=== PATIENT | male | born 1975 | race Caucasian/White ===

== ENCOUNTER 2022-11-05 09:03 | Inpatient (IN) | payer OTHER ==
[~2022-11-05 09:03] MED LIST: REGADENOSON 0.4 MG/5 ML SYR IV ONE
--- OUTSIDE RECORDS SUMMARY | 2022-11-05 09:08 | XMS REPORT | Continuity of Care Document ---
:1975 Author Organization [facility] t Address [address] [facility] [address] [place] [address] Care Team Providers Name Role Phone Georgia Marcelino Attending Clinician Unavailable Problems This patient has no known problems. Allergies, Adverse Reactions, Alerts This patient has no known allergies or adverse reactions. Medications This patient has no known medications. Procedures This patient has no known procedures. Encounters Start End Encounter Admission Attending Care Care Encounter Source Date/Time Date/Time Type Type Clinicians Facility Department ID 2021-04-23 Outpatient IRIS Marcelino [facility] [id number] Common 10:59:53 Georgia [id number] [facility] 2022-11-02 2022-11-02 Outpatient [facility] [id number] Daryn 08:20:45 08:20:45 [id number] F Abundio 2022-10-29 2022-10-29 Outpatient [facility] [id number] Daryn 17:10:17 17:10:17 [id number] F Abundio Results This patient has no known results.
--- NOTE | 2022-11-05 09:33 | EDPHYS ---
Physician Documentation [facility] Name: Guy Owens Age: 47 yrs Sex: Male : 1975 Arrival Date: 11/05/2022 Time: 09:03 Bed 18 Private MD: ED Physician German Hyman HPI: 11/05 09:28 This 47 yrs old Male presents to ER via Ambulatory with complaints of Chest Pain, snw Numbness Of Arm - Left. 09:28 Onset: The symptoms/episode began/occurred acutely. Associated signs and symptoms: snw Pertinent positives: chest pain, shortness of breath, diaphoresis, anxiety. The patient has not experienced similar symptoms in the past. The patient has been recently seen by a physician: the patient's primary care provider, with similar presenting complaints, encouraged to see cardiology, get stress test. Historical: - Allergies: 09:10 No Known Allergies; bp - Home Meds: 09:10 None [Active]; bp - PMHx: 09:10 None; bp - Immunization history:: Adult Immunizations up to date. - Social history:: Smoking status: Patient denies any tobacco usage or history of. ROS: 09:27 Constitutional: Negative for fever, chills, and weight loss, Eyes: Negative for injury, snw pain, redness, and discharge, ENT: Negative for injury, pain, and discharge, Neck: Negative for injury, pain, and swelling. 09:27 : Negative for injury, bleeding, discharge, and swelling, MS/Extremity: Negative for injury and deformity, Skin: Negative for injury, rash, and discoloration, Neuro: Negative for headache, weakness, numbness, tingling, and seizure, Psych: Negative for depression, anxiety, suicide ideation, homicidal ideation, and hallucinations, + anxious 09:27 Cardiovascular: Positive for chest pain. 09:27 Respiratory: Positive for shortness of breath. 09:27 Abdomen/GI: Positive for sweaty, poor feeling not described as nausea. Exam: 09:26 Constitutional: This is a well developed, well nourished patient who is awake, alert, snw and in no acute distress. Head/Face: Normocephalic, atraumatic. Eyes: Pupils equal round and reactive to light, extra-ocular motions intact. Lids and lashes normal. Conjunctiva and sclera are non-icteric and not injected. Cornea within normal limits. Periorbital areas with no swelling, redness, or edema. ENT: Nares patent. No nasal discharge, no septal abnormalities noted. Tympanic membranes are normal and external auditory canals are clear. Oropharynx with no redness, swelling, or masses, exudates, or evidence of obstruction, uvula midline. Mucous membranes moist. Neck: Trachea midline, no thyromegaly or masses palpated, and no cervical lymphadenopathy. Supple, full range of motion without nuchal rigidity, or vertebral point tenderness. No Meningismus. Chest/axilla: Normal chest wall appearance and motion. Nontender with no deformity. No lesions are appreciated. 09:26 Respiratory: Lungs have equal breath sounds bilaterally, clear to auscultation and percussion. No rales, rhonchi or wheezes noted. No increased work of breathing, no retractions or nasal flaring. Abdomen/GI: Soft, non-tender, with normal bowel sounds. No distension or tympany. No guarding or rebound. No evidence of tenderness throughout. Back: No spinal tenderness. No costovertebral tenderness. Full range of motion. Skin: Warm, dry with normal turgor. Normal color with no rashes, no lesions, and no evidence of cellulitis. MS/ Extremity: Pulses equal, no cyanosis. Neurovascular intact. Full, normal range of motion. Neuro: Awake and alert, GCS 15, oriented to person, place, time, and situation. Cranial nerves II-XII grossly intact. Motor strength 5/5 in all extremities. Sensory grossly intact. Cerebellar exam normal. Normal gait. Psych: Awake, alert, with orientation to person, place and time. Behavior, mood, and affect are within normal limits. 09:26 Cardiovascular: Rate: tachycardic, Rhythm: regular, Pulses: no pulse deficits are appreciated, Edema: is not appreciated. Vital Signs: 09:09 BP 136 / 94; Pulse 82; Resp 16; Temp 98; Pulse Ox 100% ; Weight 77.11 kg; Height 6 ft. bp 1 in. ; 09:20 BP 182 / 95; Pulse 87; Resp 17; Temp 98.7; Pulse Ox 99% on R/A; rs5 10:00 BP 139 / 98; Pulse 67; Resp 18 S; Pulse Ox 99% on R/A; aa5 10:18 BP 137 / 91; Pulse 62; Resp 18 S; Pulse Ox 97% on R/A; aa5 11:00 BP 120 / 86; Pulse 65; Resp 16 S; Pulse Ox 97% on R/A; aa5 12:00 BP 118 / 90; Pulse 64; Resp 17 S; Pulse Ox 97% on R/A; aa5 13:00 BP 115 / 80; Pulse 74; Resp 16 S; Pulse Ox 96% on R/A; aa5 14:00 BP 118 / 80; Pulse 74; Resp 16 S; Pulse Ox 100% on R/A; aa5 16:00 BP 115 / 85; Pulse 73; Resp 16 S; Temp 98(TE); Pulse Ox 98% on R/A; aa5 09:09 Body Mass Index 22.43 (77.11 kg, 185.42 cm) bp 10:00 Provider notified of repeat VS, VO to hold 2nd and 3rd dose of Metoprolol. aa5 MDM: 09:17 Patient medically screened. snw 09:32 Differential diagnosis:. snw 09:33 Differential diagnosis: abnormal EKG, acute myocardial infarction, acute pericarditis, snw anxiety, coronary artery disease chest wall pain, stable angina, unstable angina. HEART Score: History: Highly Suspicious (2), ECG: Normal (0), Age: > 45 and < 65 years (1), Risk Factors: 1 or 2 risk factors (1), [Hypertension]. The patient was given aspirin in the Emergency Department. ROHIT Risk Score: 1 - Recent [<24hrs] Severe Angina, TOTAL SCORE = 1. Data reviewed: vital signs, nurses notes, lab test result(s), EKG, radiologic studies, plain films. Management of patient was discussed with the following: Hospitalist: Dr. Dowling. I considered the following discharge prescriptions or medication management in the emergency department Medications were administered in the Emergency Department. See MAR. Counseling: I had a detailed discussion with the patient and/or guardian regarding: the historical points, exam findings, and any diagnostic results supporting the discharge/admit diagnosis, the presence of at least one elevated blood pressure reading (>120/80) during this emergency department visit, lab results, radiology results, the need for further work-up and treatment in the hospital. 11/05 09:17 Order name: Basic Metabolic Panel; Complete Time: 10:09 snw 11/05 09:17 Order name: CBC with Diff; Complete Time: 09:45 snw 11/05 09:17 Order name: LFT's; Complete Time: 10:09 snw 11/05 09:17 Order name: Magnesium; Complete Time: 10:09 snw 11/05 09:17 Order name: NT PRO-BNP; Complete Time: 10:09 snw 11/05 09:17 Order name: PT-INR; Complete Time: 09:53 snw 11/05 09:17 Order name: Troponin HS; Complete Time: 10:09 snw 11/05 13:01 Order name: Lipid Profile EDMS 11/05 13:01 Order name: Lipid Profile EDMS 11/05 13:01 Order name: Troponin High Sensitivity EDMS 11/05 13:01 Order name: Troponin High Sensitivity EDMS 11/05 13:01 Order name: Troponin High Sensitivity EDMS 11/05 13:01 Order name: Troponin High Sensitivity; Complete Time: 17:53 EDMS 11/05 09:17 Order name: XRAY Chest (1 view); Complete Time: 10:48 snw 11/05 13:01 Order name: Echo with Doppler EDMS 11/05 13:01 Order name: Echo with Doppler EDMS 11/05 09:17 Order name: EKG; Complete Time: 09:18 snw 11/05 12:13 Order name: Diet Heart Healthy; Complete Time: 12:14 aa5 11/05 13:01 Order name: CONS Physician Consult EDMS 11/05 15:24 Order name: Diet Heart Healthy; Complete Time: 15:24 aa5 11/05 09:17 Order name: Cardiac monitoring; Complete Time: 09:20 snw 11/05 09:17 Order name: EKG - Nurse/Tech; Complete Time: 09:26 snw 11/05 09:17 Order name: IV Saline Lock; Complete Time: 09:34 snw 11/05 09:17 Order name: Labs collected and sent; Complete Time: 09:34 snw 11/05 09:17 Order name: O2 Per Protocol; Complete Time: 09:20 snw 11/05 09:17 Order name: O2 Sat Monitoring; Complete Time: 09:20 snw Administered Medications: 09:40 Drug: Metoprolol IVP 5 mg Route: IVP; Site: right forearm; rs5 09:45 Drug: Aspirin PO Chewable Tablet 324 mg Route: PO; rs5 10:21 Follow up: Response: No adverse reaction aa5 Disposition Summary: 11/05/22 09:32 Hospitalization Ordered Hospitalization Status: Inpatient Admission snw Provider: Kobi Dowling snw Condition: Stable snw Problem: new snw Symptoms: are unchanged snw Bed/Room Type: Standard snw Location: Telemetry/MedSurg (Inpatient)(11/05/22 20:16) cg Room Assignment: [facility](11/05/22 20:16) Diagnosis - Unstable angina snw Forms: - Medication Reconciliation Form snw - SBAR form snw Signatures: Dispatcher [employer] EDGayle Jacob FNP-C BASTING P[employer]ER-Csnw Jael Washburn RN RN aa5 Skylar Amin RN RN cg Will Hastings, RN RN Marcello Jefferson RN RN rs5 Corrections: (The following items were deleted from the chart) 17:35 09:32 Telemetry/MedSurg (Inpatient) snw aa5 17:35 09:32 snw aa5 20:16 17:35 BR ER HOLD aa5 cg 20:16 17:35 ERHOLD- aa5 cg
--- NOTE | 2022-11-05 09:33 | ER ---
Nurse's Notes [facility] Name: Guy Owens Age: 47 yrs Sex: Male : 1975 Arrival Date: 11/05/2022 Time: 09:03 Bed 18 Private MD: Diagnosis: Unstable angina Presentation: 11/05 09:09 Chief complaint: Patient states: LEFT CHEST PAIN AND LUE NUMBNESS x3 DAYS, bp INTERMITTENT, HEAVY. Coronavirus screen: At this time, the client does not indicate any symptoms associated with coronavirus-19. Ebola Screen: No symptoms or risks identified at this time. Initial Sepsis Screen: Does the patient meet any 2 criteria? No. Patient's initial sepsis screen is negative. Does the patient have a suspected source of infection? No. Patient's initial sepsis screen is negative. Risk Assessment: Do you want to hurt yourself or someone else? Patient reports no desire to harm self or others. Onset of symptoms is unknown. 09:09 Method Of Arrival: Ambulatory bp 09:09 Acuity: ASCENCION 3 bp Historical: - Allergies: 09:10 No Known Allergies; bp - Home Meds: 09:10 None [Active]; bp - PMHx: 09:10 None; bp - Immunization history:: Adult Immunizations up to date. - Social history:: Smoking status: Patient denies any tobacco usage or history of. Screenin:15 [facility] ED Fall Risk Assessment (Adult) History of falling in the last 3 months, aa5 including since admission No falls in past 3 months (0 pts) Confusion or Disorientation No (0 pts) Intoxicated or Sedated No (0 pts) Impaired Gait No (0 pts) Mobility Assist Device Used No (0 pt) Altered Elimination No (0 pt) Score/Fall Risk Level 0 - 2 = Low Risk Oriented to surroundings, Maintained a safe environment, Educated pt \T\ family on fall prevention, incl call for assistance when getting out of bed. Abuse screen: Denies threats or abuse. Nutritional screening: No deficits noted. Tuberculosis screening: No symptoms or risk factors identified. Assessment: 09:15 General: Appears comfortable, Behavior is calm, cooperative. Pain: Complains of pain in aa5 chest Pain radiates to left arm Pain currently is 0 out of 10 on a pain scale. Quality of pain is described as heavy, pressure, Pain began 2-3 days ago. Is intermittent. Neuro: Level of Consciousness is awake, alert, obeys commands, Oriented to person, place, time, situation. Cardiovascular: Heart tones S1 S2 present Rhythm is sinus rhythm Parent/caregiver reports patient has had numbness to left arm x 3 days ago. Respiratory: Airway is patent Respiratory effort is even, unlabored, Respiratory pattern is regular, symmetrical. GI: Abdomen is non-distended, Bowel sounds present X 4 quads. Abd is soft and non tender X 4 quads. Patient currently denies nausea, vomiting. : No signs and/or symptoms were reported regarding the genitourinary system. EENT: No signs and/or symptoms were reported regarding the EENT system. Derm: Skin is pink, warm \T\ dry. Musculoskeletal: Range of motion: intact in all extremities. 10:18 Reassessment: x-ray at bedside . aa5 12:10 Reassessment: Patient is alert, oriented x 3, equal unlabored respirations, skin aa5 warm/dry/pink. States no complaints at this time. Awaiting admission orders for room assignment, pt notified of wait time. . 12:33 Reassessment: Dr. Dowling (hospitalist) at bedside. . aa5 12:59 Reassessment: Given lunch tray. . aa5 13:42 Reassessment: Patient is alert, oriented x 3, equal unlabored respirations, skin aa5 warm/dry/pink. Pt ambulatory to restroom . 15:00 Reassessment: Patient is alert, oriented x 3, equal unlabored respirations, skin aa5 warm/dry/pink. Patient denies pain at this time. 16:21 Reassessment: Awaiting repeat troponin due at 1725. aa5 20:21 General: attempted to call report. nurse not available and will call back. lg3 Vital Signs: 09:09 BP 136 / 94; Pulse 82; Resp 16; Temp 98; Pulse Ox 100% ; Weight 77.11 kg; Height 6 ft. bp 1 in. ; 09:20 BP 182 / 95; Pulse 87; Resp 17; Temp 98.7; Pulse Ox 99% on R/A; rs5 10:00 BP 139 / 98; Pulse 67; Resp 18 S; Pulse Ox 99% on R/A; aa5 10:18 BP 137 / 91; Pulse 62; Resp 18 S; Pulse Ox 97% on R/A; aa5 11:00 BP 120 / 86; Pulse 65; Resp 16 S; Pulse Ox 97% on R/A; aa5 12:00 BP 118 / 90; Pulse 64; Resp 17 S; Pulse Ox 97% on R/A; aa5 13:00 BP 115 / 80; Pulse 74; Resp 16 S; Pulse Ox 96% on R/A; aa5 14:00 BP 118 / 80; Pulse 74; Resp 16 S; Pulse Ox 100% on R/A; aa5 16:00 BP 115 / 85; Pulse 73; Resp 16 S; Temp 98(TE); Pulse Ox 98% on R/A; aa5 09:09 Body Mass Index 22.43 (77.11 kg, 185.42 cm) bp 10:00 Provider notified of repeat VS, VO to hold 2nd and 3rd dose of Metoprolol. aa5 ED Course: 09:06 Patient arrived in ED. mg5 09:08 [facility] snw 09:08 German Hyman MD is Attending Physician. snw 09:10 Triage completed. bp 09:15 No provider procedures requiring assistance completed. Patient maintains SpO2 aa5 saturation greater than 95% on room air. 09:15 Patient has correct armband on for positive identification. Placed in gown. Bed in low aa5 position. Call light in reach. Side rails up X2. Adult w/ patient. Client placed on continuous cardiac and pulse oximetry monitoring. NIBP monitoring applied. 09:20 Jael Washburn RN is Primary Nurse. aa5 09:25 Initial lab(s) drawn, by or, sent to lab. Inserted saline lock: 20 gauge in right aa5 forearm, using aseptic technique. Blood collected. 09:32 Kobi Dowling MD is Hospitalizing Provider. snw 10:35 XRAY Chest (1 view) In Process Unspecified. EDMS 17:00 Patient admitted, IV remains in place. aa5 21:09 Primary Nurse role handed off by Jael Washburn, RN wm Administered Medications: 09:40 Drug: Metoprolol IVP 5 mg Route: IVP; Site: right forearm; rs5 09:45 Drug: Aspirin PO Chewable Tablet 324 mg Route: PO; rs5 10:21 Follow up: Response: No adverse reaction aa5 Medication: 17:00 VIS not applicable for this client. aa5 Outcome: 09:32 Decision to Hospitalize by Provider. snw 17:00 Admitted to ER Hold. Please see [facility] for further documentation. aa5 17:00 Condition: stable 17:00 Instructed on the need for admit, Demonstrated understanding of instructions. 21:21 Patient left the ED. mb9 Signatures: Dispatcher [employer] EDMS Gayle Hampton, SIDE SPLITTER-C SIDE SPLITTER-Csnw Jael Washburn, RN RN aa5 Will Hastings RN RN bp Yuridia Gilliam RN RN lg3 Estefani Duke Mary Beth RN RN mb9 Marcello Jefferson RN RN rs5 Jing Burk mg5 Corrections: (The following items were deleted from the chart) 09:50 09:45 Metoprolol IVP 5 mg IVP in right forearm rs5 rs5
[2022-11-05 09:43] LABS: Absolute Lymphocytes (CBC) 2.5 K/uL (0.7-4.9); Hematocrit 48.9 % (39.6-49.0); Lymphocytes % 41.4 % (15.3-44.8); MCV 89.2 fL (80-100); MPV 8.8 fL (7.6-11.3); Platelets 221 thou/uL (152-406); RBC Red Blood Cell Count 5.49 M/uL (4.33-5.43)
[2022-11-05] MEDS ORDERED: ASPIRIN 81 MG CHEWABLE TABLET ONE (09:48)
[2022-11-05] MEDS ORDERED: METOPROLOL TARTRATE 5 MG/5 ML INJ IV ONE (09:49)
[2022-11-05 09:50] LABS: Protime INR 0.9
[2022-11-05 10:05] LABS: ALT/SGPT 19 U/L (16-61); AST/SGOT 14 U/L (15-37); Albumin 4.3 g/dL (3.4-5.0); Alkaline Phosphatase 74 U/L (45-117); BUN Blood Urea Nitrogen 13 mg/dL (7-18); Bicarbonate 24 mEq/L (21-32); Bilirubin Direct 0.2 mg/dL (0-0.2); Bilirubin Indirect, Calculated 0.8 mg/dL (0.2-0.8); Glomerular Filtration Rate 78 ml/min (=/>90); Glucose Level 101 mg/dL (74-106); Magnesium 2.4 mg/dL (1.6-2.4); NT PRO-BNP 18 pg/mL (<125); Potassium 3.7 mEq/L (3.5-5.1); Protein, Total 8.2 g/dL (6.4-8.2); Sodium Level 136 mEq/L (136-145)
[2022-11-05 10:08] LABS: Troponin High Sensitivity < 3.0 pg/mL (<58.9)
--- NOTE | 2022-11-05 10:41 | RAD REPORT ---
EXAM DESCRIPTION: RAD - Chest Single View - 11/05/2022 10:33 am CLINICAL HISTORY: CHEST PAIN Chest pain. COMPARISON: No comparisons FINDINGS: Portable technique limits examination quality. The lungs are grossly clear. The heart is normal in size. No displaced fractures. IMPRESSION: No acute intrathoracic process suspected.
[2022-11-05] MEDS ORDERED: MORPHINE 4 MG/ML SYR IV PRN (12:56)
[2022-11-05] MEDS ORDERED: ACETAMINOPHEN 500 MG TAB PO PRN (12:56)
--- NOTE | 2022-11-05 13:01 | P.HP ---
Certification for Inpatient Patient admitted to: Observation With expected LOS: <2 Midnights Patient will require the following post-hospital care: None Practitioner: I am a practitioner with admitting privileges, knowledge of patient current condition, hospital course, and medical plan of care. Services: Services provided to patient in accordance with Admission requirements found in Title 42 Section 412.3 of the Code of Federal Regulations Patient History Date of Service: 11/05/22 Reason for admission: CP r/o ACS History of Present Illness: Patient is a 47yo who was admitted to the hospital with chest pain. Mainly in the sternal area. Radiated to arms bilaterally. Patient had recently taken a new job. He went to get a physical and he was found to have significantly elevated blood pressure and was referred over to a physician to get that evaluated. He is got a cardiology appointment scheduled for a few weeks. Patient came into the hospital because he woke up with sudden chest pain. Pain radiated down to both of his arms. Patient was short of breath but denies any nausea. Patient will be admitted to the hospital for further evaluation. Allergies No Known Allergies Allergy (Unverified 11/05/22 12:15) Home Medications: NK [No Home Meds] 11/05/22 - Past Medical/Surgical History -: Hypertension Past Surgical History: Patient denies surgical history - Family History Father Family History: Reviewed- Non-Contributory - Social History Smoking Status: Never smoker Alcohol use: No CD- Drugs: No Caffeine use: No Review of Systems 10-point ROS is otherwise unremarkable Physical Examination - Vital Signs Temperature: 98 F Blood Pressure: 150/80 Pulse: 80 Respirations: 18 Pulse Ox (%): 96 - Physical Exam General: Alert, In no apparent distress, Oriented x3 HEENT: Atraumatic, PERRLA, Mucous membr. moist/pink, EOMI, Sclerae nonicteric Neck: Supple, 2+ carotid pulse no bruit, No LAD, Without JVD or thyroid abnormality Respiratory: Clear to auscultation bilaterally, Normal air movement Cardiovascular: Regular rate/rhythm, Normal S1 S2 Gastrointestinal: Normal bowel sounds, Soft and benign, Non-distended, No tenderness Musculoskeletal: No clubbing, No swelling, No tenderness Integumentary: No rashes Neurological: Normal gait, Normal speech, Normal strength at 5/5 x4 extr, Normal tone, Normal affect Lymphatics: No axilla or inguinal lymphadenopathy - Studies Laboratory Data (last 24 hrs) 11/05/22 11/05/22 11/05/22 09:30 09:30 09:30 WBC 6.10 Hgb 16.2 Hct 48.9 Plt Count 221 PT 9.9 INR 0.90 Sodium 136 Potassium 3.7 BUN 13 Creatinine 1.15 Glucose 101 Magnesium 2.4 Total Bilirubin 1.0 AST 14 L ALT 19 Alkaline Phosphatase 74 Assessment & Plan - Problems (Diagnosis) (1) Unstable angina Current Visit: Yes Status: Acute (2) History of hypertension Current Visit: Yes Status: Acute - Plan -High-sensitivity troponin -Cardiology consultation -Echocardiogram and stress test per cardiology recommendation -Repeat EKG -Lipid profile -Nurse Office regarding modifying risk for cardiac disease - Advance Directives Does patient have a Living Will: No Does patient have a Durable POA for Healthcare: No
--- NOTE | 2022-11-05 16:06 | CON ---
Date of Consultation: 11/05/2022 Reason For Consultation: Chest pain. History Of Present Illness: A 47-year-old male, no medical history, presented with chest pain and sh ortness of breath on exertion that started back on Wednesday night. Had pain, lasted for about 2 hours , radiated to the shoulder and then went away and then today he is having chest pain on and off as we ll as shortness of breath on exertion, walking into the emergency room and had some shortness of rabia th as per his report. Past Medical History: None. Medications: None. Allergies: NO KNOWN DRUG ALLERGIES. Family History: No premature coronary artery disease or cancer. Social History: He does not smoke or drink. Does not use any drugs. Review of Systems: All systems reviewed and they were negative except what mentioned in HPI. Physical Examination: Vital Signs: Reviewed. Head and Neck: Pupils are equal, reactive to light. Intact eye movements. No JVD. No cervical lym phadenopathy. Neck is supple. Thyroid is not enlarged. Lungs: Clear to auscultation bilaterally. No rhonchi, wheezing, or crackles. No accessory muscle u se. Heart: Regular rate and rhythm. No extra sounds. Abdomen: Soft, nontender. Bowel sounds positive. No organomegaly. No masses or hernia. No rigidi ty or rebound. Extremities: No edema, clubbing, or cyanosis. Intact pulses. Skin: No rash. Neurologic: Alert, awake, oriented x3. No acute focal deficits appreciated. Investigations: BUN 13, creatinine 1.1, and troponin is less than 3, and hemoglobin is 16.2. Assessment And Recommendations: 1.Chest pain. It is exertional with shortness of breath on exertion. First troponin is negative. Admit for observation, serial cardiac enzymes, and I will recommend to obtain an exercise nuclear str ess test and an echo as he has some typical features of his symptoms. 2.Shortness of breath on exertion as outlined above. Obtain stress test and echo to further evaluat e. SR/MODL Voice ID: [id number] Report ID: [id number]
[2022-11-05] MEDS ORDERED: METOPROLOL TAR 50 MG TAB ONE (20:35)
[2022-11-05] MEDS: METOPROLOL TAR 50 MG TAB PO SCH (20:36)
[2022-11-06] MEDS: ENOXAPARIN 40 MG/0.4 ML SQ SCH (09:00)
[2022-11-06] MEDS: ASPIRIN EC 81 MG TAB PO SCH (09:33)
[2022-11-06] MEDS: METOPROLOL TAR 50 MG TAB PO SCH ×2 (09:33→22:03)
--- NOTE | 2022-11-06 12:35 | RAD REPORT ---
EXAM DESCRIPTION: NM - Rest Stress Cardiac Imaging - 11/06/2022 8:39 am CLINICAL HISTORY: CP Chest pain. COMPARISON: No comparisons TECHNIQUE: The patient was administered approximately 10mCi of Tc 99m Sestamibi prior to resting SPE CT imaging of the heart. The patient was then administered approximately 30 mCi of Tc 99m Sestamibi f ollowing exercise or pharmacologic stress. Multiplanar SPECT images were reviewed. FINDINGS: There is a small area of mild stress-induced ischemia involving the LV apex and septal wal l. No fixed defect is seen to suggest hibernating myocardium or scarred myocardium. The end diastolic volume is 94 ml, the end systolic volume is 34 ml, and the ejection fraction is 64 %. IMPRESSION: Small area of mild stress-induced ischemia LV apex extending into the septal wall.
[2022-11-07] MEDS: METOPROLOL TAR 50 MG TAB PO SCH ×2 (09:00→21:24)
[2022-11-07] MEDS: ENOXAPARIN 40 MG/0.4 ML SQ SCH (09:00)
[2022-11-07] MEDS: ASPIRIN EC 81 MG TAB PO SCH (09:05)
[2022-11-07] MEDS: ENOXAPARIN 80 MG/0.8 ML SQ SCH ×2 (09:26→21:00)
--- NOTE | 2022-11-07 16:23 | PN ---
Subjective: Seen at bedside and he continues to have chest pain on and off, at rest and with activit ies. Stress test came back abnormal, possible with reversible ischemia and the LAD territory. Review of Systems: Positive for chest pain on and off. No nausea, vomiting, diarrhea. No abdominal pain. No dysuria, polyuria, or urinary urgency. No skin rash. All other systems reviewed, they were negative. Objective: Vital Signs: Reviewed. HEENT: Pupils are equal, reactive to light. Intact eye movements. No JVD. No cervical adenopathy. Neck: Supple. Thyroid is not enlarged. Lungs: Clear to auscultation bilaterally. No rhonchi, rales, or crackles. No accessory muscle use. Heart: Regular rate and rhythm. No extra sounds. Abdomen: Soft, nontender. Bowel sounds positive. No organomegaly. Nondistended. Extremities: No edema, clubbing, cyanosis. Intact pulses. Skin: No rash. Neurologic: Alert, awake, oriented x3. No acute focal deficits appreciated. Investigations: LDL cholesterol is 172, and cardiac enzymes are negative. Assessment And Recommendation: 1.Chest pain with abnormal stress test, a very high LDL cholesterol. This could be unstable angina. Given that the patient continues to have chest pain. I recommend to keep the patient through the [facility] and plan for coronary angiogram on Wednesday morning. 2.Dyslipidemia. Agree with Lipitor 80 mg q.h.s. 3.Hypertension. Blood pressure is controlled. Continue metoprolol. SR/MODL Voice ID: [id number] Report ID: [id number]
--- NOTE | 2022-11-07 16:39 | P.PN ---
Subjective Date of Service: 11/06/22 Subjective: No new changes, No C/O voiced, Improving Review of Systems 10-point ROS is otherwise unremarkable Physical Examination - Vital Signs Temperature: 98 F Blood Pressure: 150/80 Pulse: 80 Respirations: 18 Pulse Ox (%): 96 - Physical Exam General: Alert, In no apparent distress, Oriented x3 Respiratory: Clear to auscultation bilaterally, Normal air movement Cardiovascular: Regular rate/rhythm, Normal S1 S2, No murmurs Gastrointestinal: Normal bowel sounds, Soft and benign, Non-distended, No tenderness, No rebound, No guarding Musculoskeletal: No clubbing, No swelling, No tenderness Neurological: Sensation intact, Cranial nerves 3-12 intact - Studies Medications List Reviewed: Yes Assessment & Plan - Problems (Diagnosis) (1) Unstable angina Current Visit: Yes Status: Acute (2) History of hypertension Current Visit: Yes Status: Acute - Plan -High-sensitivity troponin -Cardiology consultation appreciated -Stress test with some reversible ischemia noted. Patient continues to have some chest pain so we will proceed with cardiac catheterization. -Repeat EKG -Lipid profile significantly elevated LDL levels. Start statin therapy. -Satellite Dish Repairer regarding modifying risk for cardiac disease Discharge Plan: Home Plan to discharge in: Greater than 2 days - Advance Directives Does patient have a Living Will: No Does patient have a Durable POA for Healthcare: No - Code Status/Comfort Care Code Status Assessed: Yes Code Status: Full Code Critical Care: No Time Spent Managing PTS Care (In Minutes): 35
--- NOTE | 2022-11-07 16:42 | P.PN ---
Date of Service: 11/07/22 Subjective Patient is doing well no new complaints. Clinical symptoms are improving. Review of Systems 10-point ROS is otherwise unremarkable Physical Examination - Vital Signs Reviewed - Physical Exam General: Alert, In no apparent distress, Oriented x3 Respiratory: Clear to auscultation bilaterally, Normal air movement Cardiovascular: Regular rate/rhythm, Normal S1 S2, No murmurs Gastrointestinal: Normal bowel sounds, Soft and benign, Non-distended, No tenderness, No rebound, No guarding Musculoskeletal: No clubbing, No cyanosis, no edema Neurological: No focal deficits Assessment & Plan - Problems (Diagnosis) (1) Unstable angina Current Visit: Yes Status: Acute (2) History of hypertension Current Visit: Yes Status: Acute - Plan Continue with plan of care as mentioned below -High-sensitivity troponin-negative; persistent chest pain. Concern for unstable angina -Cardiology consultation appreciated -Stress test with some reversible ischemia noted. Patient continues to have some chest pain so we will proceed with cardiac catheterization. Plan for cardiac catheterization on Wednesday -Lipid profile significantly elevated LDL levels. Start statin therapy. -Chief Enterprise Architect regarding modifying risk for cardiac disease Time Spent Managing PTS Care (In Minutes): 35
[2022-11-07 20:28] VITALS: BMI 22.3
[2022-11-07] MEDS: ATORVASTATIN 80 MG TAB PO SCH (21:18)
[2022-11-08 07:18] LABS: Hematocrit 45.6 % (39.6-49.0); Lymphocytes % 40.2 % (15.3-44.8); MCV 89.6 fL (80-100); MPV 9.6 fL (7.6-11.3); Platelets 208 thou/uL (152-406); RBC Red Blood Cell Count 5.09 M/uL (4.33-5.43)
[2022-11-08 07:40] LABS: Albumin 3.7 g/dL (3.4-5.0); Bilirubin Total 0.7 mg/dL (0.2-1.0); Magnesium 2.2 mg/dL (1.6-2.4); Phosphorus 3.8 mg/dL (2.5-4.9); Potassium 4.3 mEq/L (3.5-5.1); Troponin High Sensitivity 6.5 pg/mL (<58.9)
[2022-11-08] MEDS: ASPIRIN EC 81 MG TAB PO SCH (08:40)
[2022-11-08] MEDS: METOPROLOL TAR 50 MG TAB PO SCH ×3 (08:40→21:31)
[2022-11-08] MEDS: ENOXAPARIN 80 MG/0.8 ML SQ SCH ×3 (08:41→21:30)
--- NOTE | 2022-11-08 15:37 | EKG ---
Test Date: 2022-11-05 Test Time: 09:17:13 Account Development Associate: GRACIE MEASUREMENT RESULTS: Intervals: Rate: 74 OK: 174 QRSD: 80 QT: 400 QTc: 444 [place]: P: 76 OK: 174 QRS: 78 T: 71 INTERPRETIVE STATEMENTS: Normal sinus rhythm Normal ECG No previous ECG available for comparison Electronically Signed On 11-08-22 15:32:37 CDT by Alfie Corrales
--- NOTE | 2022-11-08 16:06 | PN ---
Date of Progress Note: 11/08/2022 Subjective: Seen by bedside. Doing clinically well. Still having on and off chest pain. Review of Systems: No active chest pain at present time. No nausea, vomiting, diarrhea. No abdominal pain. No dysuria , polyuria, or urinary urgency. All other systems reviewed and they were negative. Physical Examination: Vital Signs: Reviewed. Head and Neck: Pupils are equal, reactive to light. Intact eye movements. No JVD. No cervical lym phadenopathy. Neck is supple. Thyroid is not enlarged. Lungs: Clear to auscultation bilaterally. No rhonchi, wheezing, or crackles. No accessory muscle u se. Heart: Regular rate and rhythm. No extra sounds. Abdomen: Soft, nontender. Bowel sounds positive. No organomegaly. No masses or hernia. No rigidi ty or rebound. Extremities: No edema, clubbing, or cyanosis. Intact pulses. Skin: No rash. Neurologic: Alert, awake, oriented x3. No acute focal deficits appreciated. Investigations: BUN is 18, creatinine 1.04, and hemoglobin is 15. Assessment And Recommendations: 1.Chest pain, on and off with positive stress test suggestive of unstable angina. Keep n.p.o. past midnight, plan for coronary angiogram tomorrow morning. 2.Dyslipidemia. Agree with high-dose Lipitor. 3.Hypertension. Blood pressure is controlled. Continue current management. /HUMBERTO Voice ID: [id number] Report ID: [id number]
[2022-11-08] MEDS: ATORVASTATIN 80 MG TAB PO SCH (20:44)
--- NOTE | 2022-11-09 05:24 | P.PN ---
Date of Service: 11/08/22 Subjective Patient denies any new complaints. Review of Systems 10-point ROS is otherwise unremarkable Physical Examination - Vital Signs Reviewed - Physical Exam General: Alert, In no apparent distress, Oriented x3 Respiratory: Clear to auscultation bilaterally, Normal air movement Cardiovascular: Regular rate/rhythm, Normal S1 S2, No murmurs Neurological: No focal deficits Assessment & Plan - Problems (Diagnosis) (1) Unstable angina Current Visit: Yes Status: Acute (2) History of hypertension Current Visit: Yes Status: Acute - Plan Continue with plan of care as mentioned below -High-sensitivity troponin-negative; persistent chest pain. Concern for unstable angina; stress test was positive. Cardiac catheterization in a.m. -Cardiology consultation appreciated -Stress test with some reversible ischemia noted. Patient continues to have some chest pain so we will proceed with cardiac catheterization. Plan for cardiac catheterization in AM -Lipid profile significantly elevated LDL levels. Start statin therapy. -Fashion Marketer regarding modifying risk for cardiac disease Time Spent Managing PTS Care (In Minutes): 35
--- NOTE | 2022-11-09 07:17 | ECHO ---
HEIGHT: 6 ft 1 in WEIGHT: 169 lb 0 oz DATE OF STUDY: 11/06/[address]: Kobi Dowling MD 2-DIMENSIONAL: YES M.MODE: YES DOPPLER: YES COLOR FLOW: YES TDS: PORTABLE: YES DEFINITY: BUBBLE STUDY: DIAGNOSIS: CHEST PAIN, RULE OUT ACUTE CORONARY SYNDROME CARDIAC HISTORY: CATHERIZATION: NO SURGERY: NO PROSTHETIC VALVE: NO PACEMAKER: NO MEASUREMENTS (cm) DIASTOLIC (NORMALS) SYSTOLIC (NORMALS) IVSd 0.9 (0.6-1.2) LA Diam 1.8 (1.9-4.0) LVEF 69% LVIDd 3.4 (3.5-5.7) LVIDs 2.1 (2.0-3.5) %FS 38% LVPWd 1.0 (0.6-1.2) Ao Diam 2.6 (2.0-3.7) 2 DIMENSIONAL ASSESSMENT: RIGHT ATRIUM: NORMAL LEFT ATRIUM: NORMAL RIGHT VENTRICLE: NORMAL LEFT VENTRICLE: NORMAL TRICUSPID VALVE: NORMAL MITRAL VALVE: MILD MITRAL REGURGITATION PULMONIC VALVE: NORMAL AORTIC VALVE: NORMAL PERICARDIAL EFFUSION: NONE AORTIC ROOT: NORMAL LEFT VENTRICULAR WALL MOTION: NORMAL DOPPLER/COLOR FLOW: MILD MITRAL REGURGITATION COMMENTS: 1. NORMAL LEFT VENTRICULAR EJECTION FRACTION 60-65% 2. NORMAL WALL MOTION 3. NORMAL DIASTOLIC FUNCTION 4. MILD MITRAL REGURGITATION TECHNOLOGIST: FARA MCDONOUGH
--- NOTE | 2022-11-09 07:32 | TREADPHA ---
DX: CHEST PAIN, RULE OUT ACUTE CORONARY SYNDROME Date of Study: 11/06/2022 Ht: 6' 1 " Wt: 169 lb 0 oz Consulting Physician: GINGER MEDICATIONS: TYLENOL, ASPIRIN, LOVENOX, LOPRESSOR, MORPHINE HISTORY: 47 YEAR OLD MALE WITH NO PREVIOUS MEDICAL HISTORY. PATIENT DENIES ALLERGIES. PHYSICIAL EXAMINATION: RESTING B.P.: 148/79 RESTING H.R.: 72 RESTING EKG: NORMAL SINUS RHYTHM, WITHIN NORMAL LIMITS PROTOCOL: PHARMACOLOGIC EXERCISE TIME: 3:30 B.P. AT PEAK STRESS: 132/82 IMPRESSION: LEXISCAN INJECTED. CARDOLITE INJECTED. SEE NUCLEAR MEDICINE REPORT. NO SUPRAVENTRICULAR TACHYCARDIA, VENTRICULAR TACHYCARDIA, PREMATURE VENTRICULAR COMPLEXES OR PRAMATURE ATRIAL COMPLEXES NOTED. PATIENT DENIES CHEST PAIN. PATIENT STATED SOME LIGHT HEADEDNESS DURING PROCEDURE. NO EKG CHANGES WITH LEXISCAN.
[2022-11-09] MEDS: ASPIRIN EC 81 MG TAB PO SCH (08:35)
[2022-11-09] MEDS ORDERED: NA CHLORIDE 0.9% 500 ML ONE (08:49)
[2022-11-09] MEDS ORDERED: LIDOCAINE 1% 20 ML MDV ONE (08:54)
[2022-11-09] MEDS ORDERED: MIDAZOLAM HCL 2 MG/2 ML INJ ONE (08:54)
[2022-11-09] MEDS ORDERED: HEPA 1000U/500MLS 2,000 UNIT/1,000 ML BAG IV ONE (08:54)
[2022-11-09] MEDS ORDERED: NITROGLYCERIN 100 MCG/ML SYR (for cath lab use only) IV ONE (08:55)
[2022-11-09] MEDS ORDERED: ATROPINE SULF 1 MG/10 ML SYR IV ONE (08:55)
[2022-11-09] MEDS ORDERED: HEPARIN 5000 UNIT/ML 1 ML VIAL ONE (08:55)
[2022-11-09] MEDS ORDERED: VERAPAMIL HCL 10 MG/4 ML VIAL IV ONE (08:55)
[2022-11-09] MEDS ORDERED: TICAGRELOR 90 MG TABLET PO ONE (08:55)
[2022-11-09] MEDS ORDERED: CLOPIDOGREL 75 MG TABLET ONE (08:56)
[2022-11-09] MEDS ORDERED: ASPIRIN 325 MG TAB ONE (08:56)
[2022-11-09] MEDS ORDERED: FENTANYL CITR 100 MCG/2 ML ONE (09:16)
[2022-11-09] MEDS ORDERED: HEPARIN 10,000 UNIT/10 ML VIAL IV ONE (09:27)
[2022-11-09 10:48] VITALS: TEMP 97.5
[2022-11-09 10:53] VITALS: BP 108/63; O2SAT 100
--- NOTE | 2022-11-09 12:18 | P.DS ---
Discharge Date: 11/09/22 Disposition: ROUTINE DISCHARGE Discharge Condition: GOOD Reason for Admission: CP r/o ACS Consultations: Cardiology - Problems (1) Unstable angina Current Visit: Yes Status: Acute (2) History of hypertension Current Visit: Yes Status: Acute Brief History of Present Illness: Patient is a 47yo who was admitted to the hospital with chest pain. Mainly in the sternal area. Radiated to arms bilaterally. Patient had recently taken a new job. He went to get a physical and he was found to have significantly elevated blood pressure and was referred over to a physician to get that evaluated. He is got a cardiology appointment scheduled for a few weeks. Andie peralta came into the hospital because he woke up with sudden chest pain. Pain radiated down to both of his arms. Patient was short of breath but denies any nausea. Patient will be admitted to the hospital for further evaluation. Hospital Course: Patient has done well during the hospital stay. Pts cardiac cath was unremarkable. Patient is stable for discharge home with outpatient follow-up. Vital Signs/Physical Exam: Temp Pulse Resp BP Pulse Ox 97.5 F 67 16 108/63 99 11/09/22 09:55 11/09/22 10:52 11/09/22 10:52 11/09/22 10:52 11/09/22 08:00 General: Alert, In no apparent distress, Oriented x3 Laboratory Data at Discharge: WBC 7.40 thou/uL (4.3-10.9) 11/08/22 06:24 Hgb 15.0 g/dL (13.6-17.9) 11/08/22 06:24 Hct 45.6 % (39.6-49.0) 11/08/22 06:24 Plt Count 208 thou/uL (152-406) 11/08/22 06:24 PT 9.9 SECONDS (9.5-12.5) 11/05/22 09:30 INR 0.90 11/05/22 09:30 Sodium 139 mEq/L (136-145) 11/08/22 06:24 Potassium 4.3 mEq/L (3.5-5.1) 11/08/22 06:24 BUN 18 mg/dL (7-18) 11/08/22 06:24 Creatinine 1.04 mg/dL (0.70-1.30) 11/08/22 06:24 Glucose 101 mg/dL (74-106) 11/08/22 06:24 Phosphorus 3.8 mg/dL (2.5-4.9) 11/08/22 06:24 Magnesium 2.2 mg/dL (1.6-2.4) 11/08/22 06:24 Total Bilirubin 0.7 mg/dL (0.2-1.0) 11/08/22 06:24 AST 12 U/L (15-37) L 11/08/22 06:24 ALT 21 U/L (16-61) 11/08/22 06:24 Alkaline Phosphatase 64 U/L (45-117) 11/08/22 06:24 Triglycerides 155 mg/dL (<150) H 11/06/22 03:23 Cholesterol 254 mg/dL (<200) H 11/06/22 03:23 HDL Cholesterol 51 mg/dL (40-60) 11/06/22 03:23 Cholesterol/HDL Ratio 4.98 11/06/22 03:23 Home Medications: Atorvastatin Calcium [Lipitor] 40 mg PO BEDTIME #30 tab 11/09/22 Metoprolol Tartrate [Lopressor*] 50 mg PO BID #60 tab 11/09/22 New Medications: Atorvastatin Calcium [Lipitor] 40 mg PO BEDTIME #30 tab Metoprolol Tartrate [Lopressor*] 50 mg PO BID #60 tab Physician Discharge Instructions: -DC IV and DC home -Follow-up with PCP in 1 to 2 weeks -Follow-up with Cardiology in 1 to 2 weeks -Please call Dr. Dowling at [phone] if any questions regarding hospital stay -Please call nursing station at [phone] if any nursing or medication questions -Return to the emergency room if symptoms worsen Diet: AHA Activity: Fall precautions Followup: OOTOOT [Primary Care Provider] - Time spent managing pt's care (in minutes): 35
--- NOTE | 2022-11-09 13:24 | PN ---
Date of Progress Note: 11/09/2022 Subjective: Seen by bedside and is doing clinically well. No active chest pain this morning. Review of Systems: No chest pain, shortness of breath, orthopnea, cough. No nausea, vomiting, diarrhea. All other syst ems reviewed and they were negative. Physical Examination: Vital Signs: Reviewed. Head and Neck: Pupils are equal, reactive to light. Intact eye movements. No JVD. No cervical lym phadenopathy. Neck is supple. Thyroid is not enlarged. Lungs: Clear to auscultation bilaterally. No rhonchi, wheezing, or crackles. No accessory muscle u se. Heart: Regular rate and rhythm. No extra sounds. Abdomen: Soft, nontender. Bowel sounds positive. No organomegaly. No masses or hernia. No rigidi ty or rebound. Extremities: No edema, clubbing, or cyanosis. Intact pulses. Skin: No rash. Neurologic: Alert, awake, oriented x3. No acute focal deficits appreciated. Investigations: Labs were reviewed. Assessment And Recommendations: 1.Chest pain with abnormal stress test. Coronary angiogram today was normal. The patient can be re leased from Cardiology standpoint to resume normal activities. 2.Dyslipidemia. Continue statin. Cardiology will sign off on the case and we will follow up as an outpatient. /HUMBERTO Voice ID: [id number] Report ID: [id number]
--- NOTE | 2022-11-09 13:39 | OP ---
Date of Procedure: 11/09/2022 Surgeon: URBANO MILES Procedures Performed: 1.Selective coronary angiogram. 2.Left heart catheterization. Indication: 1.Unstable angina. 2.Abnormal stress test. Access: Right radial artery 6-Albanian closed with TR band. Complications: None. Bleeding: Less than 20 mL. Anesthesia: Total sedation time was 15 minutes. Description Of Procedure: After risks, benefits, alternatives were explained, the patient agreed to procedure and signed informed consent. The patient was brought into cardiac catheterization laborato , prepped and draped in the usual sterile fashion. Then, I accessed right radial artery using pedi atric micropuncture kit, placed 6-Albanian Slender sheath and took 5-Albanian 4.0 catheter into the aorti c root over a J-wire, engaged left main, took standard views, and then the RCA and took standard view s, and then the catheter was pushed over the wire into the LV, measured the LVEDP and pullback did no t record any gradient. Then, the catheter was removed, sheath was removed. TR band was placed for c losure with good hemostasis. Findings: 1.Left main; normal. 2.LAD; moderate-sized and normal. Normal diagonal branches. 3.Left circumflex is normal. Normal OM branches. 4.RCA; normal and dominant. 5.Normal LVEDP between 8 to 10 mmHg. Conclusion: 1.Normal coronary arteries. 2.Normal LVEDP. Plan: The patient can be discharged home Cardiology standpoint and follow up as outpatient and recom mend cardiac risk factor modifications. SR/MODL Voice ID: [id number] Report ID: [id number]
== END 2022-11-09 12:00 | disposition home or self-care (01) | DRG 287 ==
LOC: ER 09:03 → ERHOLD 13:09 → 4TH 20:26 → OBSVTOIN 11-07 09:10
PROVIDERS: ADMIT Hospitalist; ATTEND Hospitalist
PROC: 4A023N7 Measurement of Cardiac Sampling and Pressure, Left Heart, Percutaneous Approach (ICD-10-PCS; principal; 2022-11-09)
PROC: B2111ZZ Fluoroscopy of Multiple Coronary Arteries using Low Osmolar Contrast (ICD-10-PCS; 2022-11-09)
DX: I20.0 Unstable angina (principal); I10 Essential (primary) hypertension; E78.5 Hyperlipidemia, unspecified; Z79.899 Other long term (current) drug therapy
CPT/HCPCS: 36415; 71045; 76937; 78452; 80048; 80053; 80061; 80076; 83735; 83880; 84100; 84484; 85025; 85610; 93005; 93017; 93306; 93458; 96374; 99285; A9500; C1893; J0461; J1644; J1650; J2001; J2250; J2785; J3010; J7040; Q9966